=== PATIENT | female | born 1980 | race Caucasian/White ===

== ENCOUNTER 2019-05-30 08:15 | Inpatient (IN) | payer BC ==
[2019-05-30] MEDS ORDERED: ELECTROLYTE-148 SOLN 1,000 ML IV ONE (09:00)
[2019-05-30] MEDS ORDERED: CITRIC ACID/SODIUM CITRATE 30 ML UNIT-DOSE CUP PO ONE (09:00)
[2019-05-30 09:24] LABS: EOS % 2.3 % (0-4.5); HEMATOCRIT 32.5 % (32.4-45.2); HEMOGLOBIN 11.1 GM/dL (10.7-15.3); LYMPH % 24.5 % (8-40); MCH 32.1 pg (25.7-33.7); MCHC 34.1 g/dl (32.0-36.0); MEAN PLT VOLUME 9.7 fl (7.5-11.1); MONO % 6.3 % (3.8-10.2); NEUT % 65.9 % (42.8-82.8); PLATELET COUNT 246 K/MM3 (134-434); RBC 3.46 M/mm3 (3.60-5.2); RDW 13.6 % (11.6-15.6); WHITE BLOOD COUNT 8.5 K/mm3 (4.0-10.0)
[2019-05-30 09:34] LABS: INR 0.97 (0.83-1.09); PROTHROMBIN TIME (PATIENT) 11.5 SEC (9.7-13.0)
[2019-05-30 09:37] LABS: ACTIVATED PTT 26.2 SECONDS (25.2-36.5)
[2019-05-30 09:43] VITALS: BMI 36.1
[2019-05-30 09:43] LABS: BLOOD UREA NITROGEN 11.9 mg/dL (7-18); CALCIUM 8.2 mg/dL (8.5-10.1); CREATININE 0.4 mg/dL (0.55-1.3); POTASSIUM 3.8 mmol/L (3.5-5.1)
[2019-05-30] MEDS ORDERED: ELECTROLYTE-148 SOLN 1,000 ML IV SCH (10:00)
[2019-05-30] MEDS ORDERED: morphine SULFATE/PF 0.5 MG/ML (2cc Syringe - QUVA) ONE (10:01)
[2019-05-30] MEDS ORDERED: OXYTOCIN 20 UNITS in 0.9% NS 40 UNIT/2,000 ML INFUS.BAG IV ONE (10:02)
[2019-05-30] MEDS ORDERED: morphine SULFATE/PF 0.5 MG/ML (2cc Syringe - QUVA) EP ONE (10:08)
[2019-05-30] MEDS ORDERED: PHENYLEPHRINE HCL 10 MG/1 ML SINGLE DOSE VIAL ONE (10:11)
--- NOTE | 2019-05-30 10:11 | HP ---
Past Medical History - Primary Care Physician PCP:: Frantz Hammer - Admission Chief Complaint: 40.2 weeks, AMA, , request of c/s History of Present Illness: 39 yo f g 2 p0 0 1 0 40.2 weeks . AMA. , , requesting c/s, risks associated with c/s discussed , aware of bleeding, infection, injury to surrounding tissue , DVT, post op complications and risks to future , declined induction, requesting c/s History Source: Patient Limitations to Obtaining History: No Limitations - Past Medical History ...: 2 ...Para: 0 ...Term: 0 ...: 0 ...Spon : 0 ...Induced : 1 ...Multiple Gestation: 0 ...LMP: 08/25/18 ... Weeks Gestation by Dates: 39.5 ...EDC by Dates: 06/01/19 ...EDC by Sono: 05/28/19 Infectious Disease: Yes: STD's (gentilia herepes , on Valtrex), Other (txed for head lice) - Past Surgical History Hx Myomectomy: No Hx Transabdominal Cerclage: No - Smoking History Smoking history: Never smoked Have you smoked in the past 12 months: No - Alcohol/Substance Use Hx Alcohol Use: No Home Medications - Allergies Allergies/Adverse Reactions: Allergies Allergy/AdvReac Type Severity Reaction Status Date / Time Penicillins Allergy Severe Rash Verified 05/30/19 08:35 - Home Medications Home Medications: Ambulatory Orders Vits96/Iron Fum/Folic [ Tablet] 1 each PO DAILY 05/30/19 Review of Systems - Review of Systems Constitutional: reports: No Symptoms Eyes: reports: No Symptoms HENT: reports: No Symptoms Neck: reports: No Symptoms Cardiovascular: reports: No Symptoms Respiratory: reports: No Symptoms Gastrointestinal: reports: No Symptoms Genitourinary: reports: No Symptoms Breasts: reports: No Symptoms Reported Musculoskeletal: reports: No Symptoms Integumentary: reports: No Symptoms Neurological: reports: No Symptoms Endocrine: reports: No Symptoms Hematology/Lymphatic: reports: No Symptoms Psychiatric: reports: No Symptoms Physical Exam - Maternity Vital Signs: Vital Signs Temperature 97.6 F 05/30/19 09:00 Pulse Rate 92 H 05/30/19 09:00 Respiratory Rate 18 05/30/19 09:00 Blood Pressure 107/79 05/30/19 09:00 O2 Sat by Pulse Oximetry (%) Constitutional: Yes: Well Nourished, No Distress, Calm Eyes: Yes: WNL, Conjunctiva Clear, EOM Intact HENT: Yes: WNL, Atraumatic, Normocephalic Neck: Yes: WNL, Supple, Trachea Midline Cardiovascular: Yes: WNL, Regular Rate and Rhythm Breast(s): Yes: WNL - Abdominal Exam/OB Fundal Height: 40 Number of Fetuses: Single Presentation: Vertex Contractions: No Intensity: Unaware Monitor Mode: External Heart Rate Location: Midline Category: I Accelerations: Non-Uniform Decelerations: None - Vaginal Exam/OB Vaginal Bleediing: No Speculum Exam: No Dilatation (cm): 0 Effacement (%): 0 Amniotic Membrane Status: Intact Presentation: Vertex/Position Station: -3 - Physical Exam Musculoskeletal: Yes: WNL Extremities: Yes: WNL Edema: Yes Edema: LLE: Trace, RLE: Trace Integumentary: Yes: WNL ...Motor Strength: WNL Psychiatric: Yes: WNL - Labs Lab Results: CBC, BMP 05/30/19 08:47 05/30/19 08:47 Hemorrhage Risk Assessment - Risk Factors Medium Risk Factors: Yes: None High Risk Factors: Yes: None Risk Score: 1 Risk Level: Medium Risk Problem List - Problems (1) Post term over 40 weeks Code(s): O48.0 - POST-TERM (2) Advanced maternal age (AMA) in Code(s): ETQ1979 - (3) Hx of herpes genitalis Code(s): Z86.19 - PERSONAL HISTORY OF OTHER INFECTIOUS AND PARASITIC DISEASES Assessment/Plan admit for c/section , risks discussed again [facility]
[2019-05-30] MEDS ORDERED: ePHEDrine SULFATE 50 MG/1 ML AMPULE ONE (10:14)
[2019-05-30] MEDS ORDERED: ceFAZolin SODIUM 1 GM VIAL ONE ×2 (10:15)
[2019-05-30] MEDS ORDERED: KETOROLAC TROMETHAMINE 30 MG/1 ML VIAL ONE (10:20)
[2019-05-30] MEDS ORDERED: OXYTOCIN 10 UNITS/ML VIAL ONE ×2 (10:31)
[2019-05-30] MEDS ORDERED: ONDANSETRON 4 MG/2 ML VIAL IVPUSH PRN ×2 (11:26)
[2019-05-30] MEDS ORDERED: WITCH HAZEL 50% (TUCKS) 40 PAD/JAR PAD TP PRN (11:27)
[2019-05-30] MEDS ORDERED: BENZOCAINE 28 GM HEMORRHOIDAL OINTMENT PR PRN (11:27)
[2019-05-30] MEDS ORDERED: METHYLERGONOVINE MALEATE 0.2 MG/1 ML AMP IM PRN (11:27)
[2019-05-30] MEDS ORDERED: oxyCODONE HCL 5 MG TABLET PO PRN (11:27)
[2019-05-30] MEDS ORDERED: BENZOCAINE 20% 57 GM BOTTLE TP PRN (11:27)
[2019-05-30] MEDS ORDERED: IBUPROFEN 800 MG/8 ML IJ IVPB PRN (11:27)
[2019-05-30] MEDS ORDERED: diphenhydrAMINE HCL 25 MG CAPSULE (FP) PO PRN (11:27)
[2019-05-30] MEDS ORDERED: ACETAMINOPHEN 1000 MG/100 ML VIAL (NON FORMULARY) IVPB ONE (11:28)
[2019-05-30] MEDS ORDERED: OXYTOCIN 20 UNITS in 0.9% NS 20 UNIT/1,000 ML INFUS.BAG IV SCH (11:30)
[2019-05-30] MEDS ORDERED: LACTATED RINGERS SOLUTION 1,000 ML IV SCH (11:30)
[2019-05-30] MEDS ORDERED: DEXTROSE 5%-LACTATED RINGERS 1,000 ML IV SCH (11:30)
--- NOTE | 2019-05-30 11:30 | OP ---
Operative Note - Note: Operative Date: 05/30/19 Pre-Operative Diagnosis: postdate , request of c/s Operation: primary LST c/s Findings: live baby girl LOP, clear fluid Post-Operative Diagnosis: Same as Pre-op Surgeon: Frantz Hammer Production Engineer Track: Andrez Patiño Anesthesia: Spinal Specimens Removed: placenta Estimated Blood Loss (mls): 700 Drains & Tubes with Location: anaya Blood Volume Replaced (mls): 0 Operative Report Dictated: Yes
[2019-05-30] MEDS ORDERED: ACETAMINOPHEN INJECTION 100 ML IVPB ONE (12:20)
[2019-05-30] MEDS: OXYTOCIN 20 UNITS in 0.9% NS 20 UNIT/1,000 ML INFUS.BAG IV SCH ×2 (12:59→21:50)
[2019-05-30] MEDS ORDERED: CEFAZOLIN 1 GM in DEXTROSE 5%-WATER - 50 ML IVPB SCH (18:00)
[2019-05-30] MEDS ORDERED: CEFAZOLIN 1 GM/D5W 1 GM/50 ML BAG IVPB SCH (18:37)
--- NOTE | 2019-05-31 07:48 | PN ---
Progress Note (short form) - Note Progress Note: Anesthesia Post Op Note Pt s/p spinal w/ duramorph for c/section awake alert denies h/a, n/v ambulating well no urinary retention good pain control VSS no apparent anesthesia complications Lary Arreguin.
--- NOTE | 2019-05-31 07:54 | PN ---
Post Progress Note - Subjective Subjective: Patient without acute complaints. Reports tolerating oral intake without nausea or vomiting. Ambulating without dizziness. Denies fevers or chills. Pain well controlled with oral pain medication. without difficulty. Passing flatus. Post Day: 1 Type of Delivery: Primary C/S Vital Signs: Vital Signs Temperature 98.2 F 05/31/19 06:00 Pulse Rate 77 05/31/19 06:00 Respiratory Rate 18 05/31/19 06:00 Blood Pressure 110/66 05/31/19 06:00 O2 Sat by Pulse Oximetry (%) 100 05/30/19 14:30 Breast Exam: Yes: Soft Uterus: Yes: Fundus Firm Incision: Yes: Dressing dry and intact Abdomen/GI: Yes: Abdomen soft Lochia: Yes: Rubra Lochia, amount: Small Extremities: Yes: Calves non-tender Perineum: Yes: Intact Activity: Other (in bed) - Labs Labs: CBC WBC 8.5 K/mm3 (4.0-10.0) 05/30/19 08:47 RBC 3.46 M/mm3 (3.60-5.2) L 05/30/19 08:47 Hgb 11.1 GM/dL (10.7-15.3) 05/30/19 08:47 Hct 32.5 % (32.4-45.2) 05/30/19 08:47 MCV 94.0 fl (80-96) 05/30/19 08:47 MCH 32.1 pg (25.7-33.7) 05/30/19 08:47 MCHC 34.1 g/dl (32.0-36.0) 05/30/19 08:47 RDW 13.6 % (11.6-15.6) 05/30/19 08:47 Plt Count 246 K/MM3 (134-434) 05/30/19 08:47 MPV 9.7 fl (7.5-11.1) 05/30/19 08:47 Absolute Neuts (auto) 5.6 K/mm3 (1.5-8.0) 05/30/19 08:47 Neutrophils % 65.9 % (42.8-82.8) 05/30/19 08:47 Lymphocytes % 24.5 % (8-40) 05/30/19 08:47 Monocytes % 6.3 % (3.8-10.2) 05/30/19 08:47 Eosinophils % 2.3 % (0-4.5) 05/30/19 08:47 Basophils % 1.0 % (0-2.0) 05/30/19 08:47 Nucleated RBC % 0 % (0-0) 05/30/19 08:47 Assessment/Plan 39yo P1 s/p 1 c/section VSS, Afebrile will follow CBC Urinated once without difficulty Encouraged ambulation
[2019-05-31] MEDS: IBUPROFEN 600 MG TABLET (FP) PO PRN ×3 (08:11→23:43)
[2019-05-31] MEDS: oxyCODONE HCL 5 MG TABLET PO PRN ×3 (09:54→23:42)
[2019-05-31] MEDS: ENOXAPARIN NA (PORCINE) 40 MG/0.4 ML DISP.SYRIN SQ SCH (09:54)
[2019-05-31 10:49] LABS: BASO % 0.5 % (0-2.0); EOS % 0.5 % (0-4.5); HEMATOCRIT 29.6 % (32.4-45.2); HEMOGLOBIN 10.1 GM/dL (10.7-15.3); LYMPH % 12.6 % (8-40); MCH 32.6 pg (25.7-33.7); MCHC 34.3 g/dl (32.0-36.0); MEAN PLT VOLUME 9.1 fl (7.5-11.1); MONO % 4.5 % (3.8-10.2); NEUT % 81.9 % (42.8-82.8); PLATELET COUNT 207 K/MM3 (134-434); RBC 3.11 M/mm3 (3.60-5.2); RDW 13.6 % (11.6-15.6); WHITE BLOOD COUNT 9.8 K/mm3 (4.0-10.0)
[2019-05-31] MEDS ORDERED: BISACODYL 10 MG SUPP.RECT RC PRN (11:28)
--- NOTE | 2019-05-31 12:05 | OP ---
DATE OF OPERATION: 05/30/2019 PREOPERATIVE DIAGNOSIS: 40.2 weeks' gestation, history of herpes genitalia, request of section. POSTOPERATIVE DIAGNOSIS: 40.2 weeks' gestation, history of herpes genitalia, request of section. PROCEDURE: Primary low segment transverse section. SURGEON: Adri Hammer MD DIVISION PLANT ENGINEER: AMANDA Guzman ANESTHESIA: Spinal. ANESTHESIOLOGIST: Carl Arreguin MD ESTIMATED BLOOD LOSS: 700 mL. FINDINGS: A live baby girl. Apgars 9, 9. DESCRIPTION OF PROCEDURE: Patient was taken to operating room under adequate spinal anesthesia. Abdomen and perineum were prepped and draped. Pfannenstiel abdominal skin incision was made. Abdominal wall was cut layer by layer until peritoneum was exposed and incised. Upon entering the abdominal cavity, lower uterine segment was identified and uterovesical fold of peritoneum established. Bladder was pushed down. Then with the lower blade of the Kathrin retractor in the pelvis, a low transverse uterine incision was made. Incision extended laterally with bandage scissors. Amniotic sac was entered. Clear fluid. Head delivered. Nasopharynx was suctioned, and live baby girl was delivered without any difficulty. Apgars 9, 9. Placenta was delivered manually. Uterine cavity was cleaned of all remaining tissue. Uterine incision was closed in 2 layers, 1st layer with 0 Biosyn continuous suture, the 2nd layer with 0 Biosyn imbricating the 1st layer. Bladder flap was closed with 0 Biosyn continuous suture. Both tubes and ovaries were checked and were normal. No active bleeding was seen. All of the lap pad, sponge, and instrument counts were correct. Peritoneum was closed with 0 Biosyn continuous suture. Muscles were brought together with interrupted sutures of 0 Biosyn. Fascia was closed with 0 Biosyn continuous suture. Subcutaneous fat interrupted suture of 0 Biosyn and skin was closed with 3-0 Vicryl subcuticular continuous suture. Patient tolerated the procedure well, left the OR in good condition. ADRI HAMMER M.D. [id number]
[2019-05-31] MEDS: SIMETHICONE 80 MG TAB.CHEW (FP) PO PRN (23:42)
--- NOTE | 2019-06-01 07:29 | PN ---
Progress Note (short form) - Note Progress Note: pod 2 s/p c/s, has mild low abdominal cramps, no excess vaginal bleeding CBC, BMP 05/31/19 10:25 05/30/19 08:47 Last Vital Signs Temp Pulse Resp BP Pulse Ox 97.6 F 101 H 18 122/76 100 05/31/19 22:00 05/31/19 22:00 05/31/19 22:00 05/31/19 22:00 05/30/19 14:30 abdomen soft, no distension , no cva uterus firm incison dry, clean no calf tenderness plan ambulate, cbc in am pain management Problem List - Problems (1) Post term over 40 weeks Code(s): O48.0 - POST-TERM (2) Advanced maternal age (AMA) in Code(s): [id number] - (3) Hx of herpes genitalis Code(s): Z86.19 - PERSONAL HISTORY OF OTHER INFECTIOUS AND PARASITIC DISEASES
[2019-06-01] MEDS: oxyCODONE HCL 5 MG TABLET PO PRN ×3 (08:08→20:29)
[2019-06-01] MEDS: IBUPROFEN 600 MG TABLET (FP) PO PRN ×3 (08:08→20:25)
[2019-06-01] MEDS: ENOXAPARIN NA (PORCINE) 40 MG/0.4 ML DISP.SYRIN SQ SCH (11:13)
[2019-06-01] MEDS: SIMETHICONE 80 MG TAB.CHEW (FP) PO PRN (15:06)
[2019-06-01] MEDS ORDERED: SENNOSIDES/DOCUSATE COMBO (SENNA PLUS) TABLET (UD) PO PRN (22:00)
[2019-06-02] MEDS: oxyCODONE HCL 5 MG TABLET PO PRN ×2 (03:14→08:35)
[2019-06-02] MEDS: SIMETHICONE 80 MG TAB.CHEW (FP) PO PRN (03:14)
[2019-06-02] MEDS: IBUPROFEN 600 MG TABLET (FP) PO PRN ×2 (03:14→08:34)
[2019-06-02 09:08] VITALS: BP 136/82; PULSE 88; TEMP 98.1
[2019-06-02 10:15] LABS: EOS % 2.5 % (0-4.5); HEMATOCRIT 31.8 % (32.4-45.2); HEMOGLOBIN 10.9 GM/dL (10.7-15.3); LYMPH % 22.9 % (8-40); MCH 32.5 pg (25.7-33.7); MCHC 34.2 g/dl (32.0-36.0); MEAN CELL VOLUME 94.9 fl (80-96); MONO % 5.4 % (3.8-10.2); NEUT % 68.2 % (42.8-82.8); PLATELET COUNT 284 K/MM3 (134-434); RBC 3.35 M/mm3 (3.60-5.2); RDW 13.8 % (11.6-15.6); WHITE BLOOD COUNT 9.2 K/mm3 (4.0-10.0)
[2019-06-02] MEDS: ENOXAPARIN NA (PORCINE) 40 MG/0.4 ML DISP.SYRIN SQ SCH (10:36)
--- NOTE | 2019-06-02 12:39 | DS ---
Physical Exam-VIDEO NEWS EDITOR Vital Signs: Vital Signs Temperature 98.1 F 06/02/19 09:08 Pulse Rate 88 06/02/19 09:08 Respiratory Rate 18 06/02/19 09:08 Blood Pressure 136/82 06/02/19 09:08 O2 Sat by Pulse Oximetry (%) 100 05/30/19 14:30 Constitutional: Yes: Well Nourished, No Distress, Calm Eyes: Yes: WNL, Conjunctiva Clear HENT: Yes: WNL, Atraumatic, Normocephalic Neck: Yes: WNL, Supple, Trachea Midline Cardiovascular: Yes: WNL, Regular Rate and Rhythm Respiratory: Yes: WNL, Regular, CTA Bilaterally Gastrointestinal: Yes: WNL, Normal Bowel Sounds, Soft, Abdomen, Obese ...Rectal Exam: Yes: Deferred Renal/: Yes: WNL External Genitalia: Yes: Normal ....Post : Yes: Uterus firm, Uterus non-tender, Slight lochia rubra Breast(s): Yes: WNL Musculoskeletal: Yes: WNL Extremities: Yes: WNL Edema: Yes Edema: LLE: Trace, RLE: Trace Integumentary: Yes: WNL Wound/Incision: Yes: Clean/Dry, Well Approximated, Steri Strips, Open to air Neurological: Yes: WNL, Alert, Oriented ...Motor Strength: WNL Psychiatric: Yes: WNL, Alert, Oriented Labs: CBC, BMP 06/02/19 09:10 05/30/19 08:47 Delivery - Delivery Section: Primary, Low Flap Transverse Type of Anesthesia: Spinal Episiotomy/Laceration: None EBL (cc): 700 Delivery, Single - Stages of Labor Date of Delivery: 05/30/19 Time of Delivery: 10:27 Time Placenta Delivered: 10:28 Placenta: Yes: Manual Removal - Condition of College Archivist/Replanting Machine Crewman Present: Yes Name: Mary Min Gender: Female Weight: 3.6 kg Position: Right, OP Total Hours ROM (Hrs/Mins): 0/2 - 1 Minute Total Score: 9 5 Minutes Total Score: 9 - Feeding Plan Initial Plan: Exclusive throughout hospitalization Discharge Summary Problems reviewed: Yes Reason For Visit: C SECTION Current Active Problems Advanced maternal age (AMA) in (Acute) Hx of herpes genitalis (Acute) Post term over 40 weeks (Acute) Procedures: Principal: Primary LT C/S Hospital Course: Normal postoperative and recovery. Condition: Good - Instructions Diet, Activity, Other Instructions: Physical activity Resume your normal everyday activity as tolerated no heavy lifting or exercise until seen by your surgeon. You may walk unlimited mary of and climb stairs. You may resume driving the car when you feel safe and comfortable behind the wheel. No sexual activity as instructed. Wound care If you have a bandage, leave it on, and keep dry for 48-72 hours. After that time discard the outer bandage. If they are tapes on the skin under the out of bandage leave them in place. They will peel off in the next 7 to 10 days. Do Not Peel them off. You may shower the day after surgery. If there are tapes present on the skin, you may shower over them. Diet There are no dietary restrictions. Eat healthy, high-fiber foods. Drink 6 to 8 glasses of liquid each day. This will assist in keeping your bowels are regular. Pain management You may take Tylenol or acetaminophen or Ibuprofen (for example, Motrin, Advil etc.) from my pain prescription medication is ordered should be taken as prescribed for moderate to severe pain. Call MD for any of the following: Severe pain not relieved by medication Fever of 101 or higher Excessive bleeding or drainage on dressing Inability to urinate FOLLOW UP IN THE OFFICE IN 7-14 DAYS. PLEASE CALL Referrals: Frantz Hammer MD [Staff Physician] - Disposition: HOME - Home Medications Comprehensive Discharge Medication List: Ambulatory Orders Vits96/Iron Fum/Folic [ Tablet] 1 each PO DAILY 05/30/19 Prescription Drug Monitoring Program (I-STOP) results: I-STOP not reviewed
--- NOTE | 2019-06-12 14:03 | PATH ---
Surgical Pathology Report Patient Name: MEREDITH FLAL [facility]. Rec. #: [id number] /Age/Gender: 1980 (Age: 39) / F Account: [id number] Location: [facility] OBS/SEMICONDUCTOR PACKAGES TESTER Taken: 05/30/2019 Received: 05/31/2019 Reported: 06/12/2019 Physicians: Frantz Hammer M.D. Specimen(s) Received PLACENTA Clinical History , 39.5 weeks by dates, 40.2 weeks by ultrasound Large baby, elective Final Diagnosis PLACENTA, SECTION: 530 G THIRD TRIMESTER PLACENTA WITH TRIVASCULAR UMBILICAL CORD AND UNREMARKABLE PLACENTAL MEMBRANES. Electronically Signed Lina Rubin M.D. Gross Description The specimen is received fresh labeled placenta and is a 530 gram, 19.5 x 17.5 x 3.0 cm. placenta with attached membranes and umbilical cord. The attached membranes are adler, translucent with focal opacities and insert marginally. The umbilical cord measures 33 cm. in length and averages 1.0 cm. in diameter. The cord inserts eccentrically, 5.5 cm. to the nearest margin. No true knots or strictures are identified. Cut surface of the umbilical cord reveals 3 vessels. The surface is baugh-blue with minimal fibrin deposition and appropriate caliber vessels. The maternal surface is red-brown with focal defects. Sectioning reveals red-brown, spongy parenchyma. No lesions are identified. Shove Up sections are submitted in three cassettes as follows: 1- membrane rolls and umbilical cord; 2-3- full thickness sections of placenta. 06/08/2019 [facility]06/08/2019
== END 2019-06-02 14:40 | disposition home or self-care (01) | DRG 788 ==
LOC: JLDR 08:15 → J3W 15:12
PROVIDERS: ADMIT Obstetrics & Gynecology; ATTEND Obstetrics & Gynecology
PROC: 10D00Z1 Extraction of Products of Conception, Low, Open Approach (ICD-10-PCS; principal; 2019-05-30)
DX: O48.0 Post-term pregnancy (principal); Z3A.40 40 weeks gestation of pregnancy; O99.213 Obesity complicating pregnancy, third trimester; Z86.19 Personal history of other infectious and parasitic diseases; Z37.0 Single live birth
CPT/HCPCS: 36415; 80048; 85025; 85610; 85730; 86593; 86850; 86900; 86901; 88307-TC; J0131